=== PATIENT | female | born 1955 | race Caucasian/White ===

== ENCOUNTER 2020-10-28 12:35 | Emergency (ER) | payer MEDICARE ==
[~2020-10-28 12:35] MED LIST: AMOX TR-K CLV1 EAC4 PO; DILAUDID2 MG PO; HYDROCODONE-APA1 TAB PO; LISINOPRIL-HCT1 EAC2 PO; NEURONTIN100 MG PO; NORCO 5-325 TA1 EACH PO; OXYCONTIN 10MG10 MG PO; TOPROL XL 25MG25 MG PO; ZOFRAN4 MG PO
== END 2020-10-28 16:02 | disposition left against medical advice (07) ==
LOC: FER 12:35
DX: R55 Syncope and collapse (principal); I10 Essential (primary) hypertension; J44.9 Chronic obstructive pulmonary disease, unspecified; F17.200 Nicotine dependence, unspecified, uncomplicated
CPT/HCPCS: 70450; 71045; 93005